=== PATIENT | female | born 2000 | race American Indian/Alaskan Native ===

== ENCOUNTER 2018-03-30 09:28 | Outpatient (CLI) | payer MEDICAID, OTHER ==
[2018-03-30] MEDS ORDERED: LACTATED RINGERS 500 ML IV ONE (09:42)
[2018-03-30 11:00] LABS: Hematocrit 32.8 % (30.3-42.9); Hemoglobin 11.3 gm/dl (10.1-14.3); Mean Corpuscular HGB Conc 35 % (30-34); Mean Corpuscular Hemoglobin 30 pg (28-32); Mean Corpuscular Volume 88 fl (79-97); Platelet Count 147 K/mm3 (140-440); Red Blood Count 3.73 M/mm3 (3.65-5.03); Red Cell Distribution Width 13.7 % (13.2-15.2)
[2018-03-30 11:04] VITALS: BP 125/80
[2018-03-30 11:15] LABS: Bacteria,Urine 1+ /HPF (Negative); Bilirubin,Urine NEG (Negative); Blood,Urine NEG (Negative); Color,Urine Yellow (Yellow); Protein,Urine <15 mg/dL mg/dL (Negative); Urobilinogen,Urine < 2.0 mg/dL (<2.0)
[2018-03-30 11:23] LABS: Amphetamine Screen,Urine PRESUMPTIVE NEGATIVE; Benzodiazepines Screen,Urine PRESUMPTIVE NEGATIVE; Cannabinoid Screen,Urine PRESUMPTIVE NEGATIVE; Cocaine Screen,Urine PRESUMPTIVE NEGATIVE; Methadone Screen,Urine PRESUMPTIVE NEGATIVE; Opiate Screen,Urine PRESUMPTIVE NEGATIVE
[2018-03-30 11:24] LABS: Alanine Aminotransferase 12 units/L (7-56)
--- NOTE | 2018-03-30 14:18 | Ultrasound Report ---
ULTRASOUND OB LIMITED History: Vaginal bleeding, placental scan Technique: Transabdominal ultrasound with Doppler interrogation. Gestation: Single Position: Breech Amniotic Fluid: Within normal limits Placenta: Fundal Placental Grade: 0 No evidence for abruption. Heart Rate: 158 BPM Cervical length: 3.2 cm (Normal > 3 cm)
== END 2018-03-30 11:52 | disposition home or self-care (01) ==
LOC: TRG 09:28
PROVIDERS: ATTEND Obstetrics & Gynecology
DX: O47.02 False labor before 37 completed weeks of gestation, second trimester (principal); Z3A.23 23 weeks gestation of pregnancy
CPT/HCPCS: 36415; 59025; 76815; 80307; 81001; 82565; 83615; 84450; 84460; 84550; 85027

== ENCOUNTER 2018-04-06 10:30 | Outpatient (CLI) | payer MEDICAID ==
[2018-04-06 10:52] VITALS: BP 130/83
[2018-04-06] MEDS ORDERED: LACTATED RINGERS 500 ML IV ONE (11:53)
== END 2018-04-06 12:17 | disposition home or self-care (01) ==
LOC: TRG 10:30
PROVIDERS: ATTEND Obstetrics & Gynecology
DX: O47.02 False labor before 37 completed weeks of gestation, second trimester (principal); Z3A.24 24 weeks gestation of pregnancy
CPT/HCPCS: 59025

== ENCOUNTER 2018-06-29 03:21 | Outpatient (CLI) | payer MEDICAID ==
[2018-06-29 03:52] VITALS: BP 142/85
[2018-06-29] MEDS ORDERED: LACTATED RINGERS 1,000 ML IV ONE (03:57)
== END 2018-06-29 05:22 | disposition home or self-care (01) ==
LOC: TRG 03:21
PROVIDERS: ATTEND Obstetrics & Gynecology
DX: O62.8 Other abnormalities of forces of labor (principal); O13.3 Gestational [pregnancy-induced] hypertension without significant proteinuria, third trimester; Z3A.36 36 weeks gestation of pregnancy
CPT/HCPCS: 59025

== ENCOUNTER 2018-07-04 20:15 | Inpatient (IN) | payer MEDICAID ==
[2018-07-04] MEDS ORDERED: STADOL IV PRN (22:11)
[2018-07-04] MEDS ORDERED: ZOFRAN IV PRN (22:11)
[2018-07-04] MEDS ORDERED: SUBLIMAZE IV PRN (22:11)
[2018-07-04] MEDS ORDERED: MINERAL OIL PO PRN (22:11)
[2018-07-04] MEDS ORDERED: XYLOCAINE 2% INFILTRATI ONE (22:11)
[2018-07-04 22:16] LABS: Hematocrit 33.6 % (30.3-42.9); Hemoglobin 11.5 gm/dl (10.1-14.3); Mean Corpuscular HGB Conc 34 % (30-34); Mean Corpuscular Volume 83 fl (79-97); Platelet Count 123 K/mm3 (140-440); Red Blood Count 4.02 M/mm3 (3.65-5.03); Red Cell Distribution Width 15.7 % (13.2-15.2)
[2018-07-04] MEDS ORDERED: PITOCin/NS 20 UNIT/1000ML DRIP 20 UNITS/1,000 ML BAG IV SCH (23:00)
[2018-07-04] MEDS ORDERED: PITOCin/NS 30 UNIT/500ML 30 UNITS/500 ML BAG IV SCH ×2 (23:00)
[2018-07-04] MEDS: LACTATED RINGERS 1,000 ML IV SCH (23:15)
--- NOTE | 2018-07-05 07:55 | History and Physical Report ---
History of Present Illness Date of examination: 07/05/18 Date of admission: 07/04/18 20:15 Chief complaint: IOL History of present illness: 18y/o @ 37+3 weeks presents for induction of labor secondary to IUGR and PIH. The patient initiated care @ 11 weeks ega with . Her course has been complicated by IUGR, concern for contractions, and PIH. Per recommendation of [facility] that the patient be scheduled for induction. Past History Past Medical History: no pertinent history Past Surgical History: no surgical history Social history: single - Obstetrical History Expected Date of Delivery: 07/23/18 Actual Gestation: 37 Week(s) 3 Day(s) : 1 Para: 0 Hx # Term Pregnancies: 0 Number of Pregnancies: 0 Spontaneous Abortions: 0 Induced : 0 Number of Living Children: 0 Medications and Allergies Allergies Allergy/AdvReac Type Severity Reaction Status Date / Time No Known Allergies Allergy Verified 05/18/18 16:28 Home Medications Medication Instructions Recorded Confirmed Last Taken Type RX: No Known Home Medications [No 06/29/18 06/29/18 Unknown History Reported Home Medications] Active Meds: Active Medications Butorphanol Tartrate (Stadol) 2 mg IV Q2H PRN PRN Reason: Pain , Severe (7-10) Ephedrine Sulfate (Ephedrine Sulfate) 10 mg IV Q2M PRN PRN Reason: Hypotension Fentanyl (Sublimaze) 100 mcg IV Q2H PRN PRN Reason: Labor Pain Oxytocin/Sodium Chloride (Pitocin/Ns 30 Unit/500ml) 30 units in 500 mls @ 2 mls/hr IV TITR JOHN; Protocol Last Titration: 07/05/18 02:00 Dose: 12 ml/hr, 12 mls/hr Documented by: Lactated Ringer's (Lactated Ringers) 1,000 mls @ 125 mls/hr IV DIRECT JOHN Last Admin: 07/04/18 23:15 Dose: 125 mls/hr Documented by: Oxytocin/Sodium Chloride (Pitocin/Ns 20 Unit/1000ml Drip) 20 units in 1,000 mls @ 125 mls/hr IV DIRECT JOHN Oxytocin/Sodium Chloride (Pitocin/Ns 30 Unit/500ml) 30 units in 500 mls @ 1 mls/hr IV TITR JOHN; Protocol Mineral Oil (Mineral Oil) 30 ml PO QHS PRN PRN Reason: Constipation Ondansetron HCl (Zofran) 4 mg IV Q8H PRN PRN Reason: Nausea And Vomiting Review of Systems All systems: negative Genitourinary: no leakage of fluid - Vital Signs Vital signs: Vital Signs Pulse BP 97 H 142/95 07/04/18 20:38 07/04/18 20:38 Temp Pulse Resp BP Pulse Ox 93 H 132/80 94 07/05/18 07:36 07/05/18 07:36 07/05/18 05:34 - Physical Exam Breasts: Positive: deferred Cardiovascular: Regular rate Lungs: Positive: Clear to auscultation Abdomen: Positive: normal appearance Results Result Diagrams: 07/04/18 21:57 Abnormal lab results 07/04/18 Range/Units 21:57 WBC 13.4 H (4.5-11.0) K/mm3 RDW 15.7 H (13.2-15.2) % Plt Count 123 L (140-440) K/mm3 All other labs normal. Assessment and Plan - Patient Problems (1) IUGR (intrauterine growth restriction) Current Visit: Yes Status: Acute Plan to address problem: admit for IOL
[2018-07-05] MEDS: LACTATED RINGERS 1,000 ML IV SCH (13:45)
--- NOTE | 2018-07-05 14:30 | Procedure Note ---
OB Delivery Note - Delivery Date of Delivery: 07/05/18 Surgeon: JOSE EDUARDO GILMORE Estimated blood loss: 500cc - Vaginal Delivery presentation: vertex Delivery position: OA Intrapartum events: mult.variable deceleratio Delivery augmentation: pitocin Delivery monitor: external FHT, external uterine Route of delivery: Delivery placenta: spontaneous Episiotomy: none Delivery laceration: other (Midline periurethral- hemostatic ) Anesthesia: none Delivery comments: Pt rapidly progressed from 4 cm to complete dilation and delivery of a viable female over intact perienum under no anesthesia attended by Ange RN while MD en route. Upon entry to room, on maternal chest for skin to skin with cord attached. Cord clamped and cut. Cord blood collected. Placenta delivered s pontaneously. Vagina and perineum explored. Midline periurethral laceration noted to be hemostatic. EBL 500 mL. - Infant A at 1 minute: 9 at 5 minutes: 9 Gender: Female (2580g (5lb 11 oz) @ 1410 pm)
[2018-07-05] MEDS ORDERED: LANSINOH TP PRN ×2 (18:02)
[2018-07-05] MEDS ORDERED: IBUPROFEN PO SCH (18:02)
[2018-07-05] MEDS ORDERED: DERMOPLAST TP PRN (18:02)
[2018-07-05] MEDS ORDERED: TUCKS PAD TP PRN (18:02)
[2018-07-05] MEDS ORDERED: SODIUM CHLORIDE FLUSH SYRINGE 10 ML IV NR (18:02)
[2018-07-05] MEDS ORDERED: PHENERGAN PR PRN (18:02)
[2018-07-05] MEDS ORDERED: MILK OF MAGNESIA PO PRN (18:02)
[2018-07-05] MEDS ORDERED: PHENERGAN PO PRN (18:02)
[2018-07-05] MEDS ORDERED: PITOCin/NS 20 UNIT/1000ML DRIP 20 UNITS/1,000 ML BAG IV SCH (18:02)
[2018-07-05] MEDS ORDERED: TYLENOL PO PRN (18:02)
[2018-07-05] MEDS ORDERED: ZOFRAN IV PRN (18:02)
[2018-07-05] MEDS ORDERED: DULCOLAX PR PRN (18:02)
[2018-07-05] MEDS ORDERED: BENADRYL PO PRN (18:02)
[2018-07-05] MEDS: NORCO 5/325 PO PRN (18:56)
[2018-07-05] MEDS: FEOSOL PO SCH (21:52)
[2018-07-06] MEDS: IBUPROFEN PO SCH ×4 (00:21→18:51)
[2018-07-06 03:00] LABS: Hematocrit 32.3 % (30.3-42.9); Hemoglobin 10.7 gm/dl (10.1-14.3)
[2018-07-06] MEDS ORDERED: M-M-R II VACCINE SUB-Q ONE (06:00)
[2018-07-06] MEDS ORDERED: BOOSTRIX IM ONE (06:00)
--- NOTE | 2018-07-06 07:59 | Progress Note ---
Assessment and Plan A: PPD#1 s/p at term, PIH P: Routine care. Anticipate discharge tomorrow. Subjective - Subjective Date of service: 07/06/18 Principal diagnosis: s/p at term; PIH Interval history: No overnight events. Patient reports: appetite normal, voiding normally, pain well controlled, ambulating normally [place]: doing well Objective - Vital Signs Latest vital signs: Vital Signs Temp Pulse Resp BP BP Pulse Ox 07/06/18 01:29 98.7 F 107 H 18 131/87 07/05/18 20:55 98.5 F 108 H 20 130/79 07/05/18 18:05 98.5 F 103 H 147/90 07/05/18 15:36 87 138/85 07/05/18 15:06 107 H 134/80 07/05/18 14:36 103 H 134/83 07/05/18 14:06 102 H 142/96 07/05/18 13:36 114 H 128/83 07/05/18 13:06 100 H 151/87 07/05/18 12:37 99 H 139/91 07/05/18 12:06 99 H 142/95 07/05/18 11:36 103 H 130/83 07/05/18 11:07 92 H 138/92 07/05/18 10:36 90 135/92 07/05/18 10:08 94 H 95 07/05/18 10:06 93 H 136/77 07/05/18 10:04 97.6 F 94 H 14 136/80 07/05/18 10:03 95 H 92 07/05/18 09:59 92 H 94 07/05/18 09:58 94 H 136/80 96 07/05/18 09:36 100 H 137/83 07/05/18 09:06 108 H 124/80 07/05/18 08:36 96 H 120/67 07/05/18 08:07 96 H 139/80 Intake and Output 07/05/18 07/06/18 07/06/18 22:59 06:59 14:59 Intake Total 180 360 Output Total 1100 800 Balance -920 -440 Intake: Intake, Free Water 180 360 Output: Urine 1100 800 Void 1100 800 Other: Total, Output Amount 600 800 # Voids Void 1 Estimated Blood Loss 500 - Exam Breasts: Present: deferred Cardiovascular: Present: Regular rate Lungs: Present: Clear to auscultation Abdomen: Present: soft Uterus: Present: fundal height at umbilicus Extremities: Present: normal
[2018-07-06] MEDS: FEOSOL PO SCH ×2 (10:15→21:36)
[2018-07-06] MEDS ORDERED: IBUPROFEN PO SCH (18:30)
[2018-07-07] MEDS: IBUPROFEN PO SCH ×3 (00:24→12:11)
[2018-07-07] MEDS: FEOSOL PO SCH (10:00)
[2018-07-07] MEDS: NORCO 5/325 PO PRN (10:00)
--- NOTE | 2018-07-07 11:46 | Progress Note ---
Assessment and Plan A: PPD#2 s/p at term, PIH P: Routine care. Discharge tomorrow. Subjective - Subjective Date of service: 07/07/18 Principal diagnosis: s/p at term; PIH Interval history: No overnight events. Pt anxious to go home. Patient reports: appetite normal, voiding normally, pain well controlled, ambulating normally : doing well, bottle feeding Objective - Vital Signs Latest vital signs: Vital Signs Temp Pulse Resp BP BP Pulse Ox 07/07/18 08:20 97.8 F 76 18 130/89 96 07/07/18 00:58 98.8 F 79 16 112/64 95 07/06/18 16:44 98.6 F 92 H 18 139/96 97 07/06/18 13:09 97.8 F 98 H 18 143/89 96 Intake and Output 07/06/18 07/07/18 07/07/18 22:59 06:59 14:59 Intake Total 1080 240 Balance 1080 240 Intake: Oral 360 240 Intake, Free Water 720 Other: Total, Intake Amount 360 240 # Voids Void 1 1 # Bowel Movements 1 - Exam Breasts: Present: deferred Cardiovascular: Present: Regular rate Lungs: Present: Clear to auscultation Uterus: Present: fundal height below umbilicus Extremities: Present: normal
--- NOTE | 2018-07-07 12:02 | Discharge Summary ---
Providers - Providers Date of Admission: 07/04/18 20:15 Date of discharge: 07/07/18 Attending physician: OSCAR REDDING 07/05/18 18:02 Consult to Testboard Operator [CONS] Routine Reason For Exam: assistance with , SNS Primary care physician: OSCAR REDDING Hospitalization Reason for admission: induction of labor Delivery: Procedure details: Please see delivery note. Episiotomy: none Laceration: other (bilateral periurethral ) Other procedures: none complications: none Discharge diagnosis: IUP at term delivered baby: female Hospital course: Pt was admitted for induction of labor secondary to IUGR and PIH. She subsequently delivered a viable female via . Her course was uncomplicated and she met discharge criteria on PPD#2. She will follow up in the office for a blood pressure check. Condition at discharge: Stable Disposition: DC-01 TO HOME OR SELFCARE - Discharge Diagnoses (1) Term of female Status: Acute (2) PIH ( induced hypertension) Status: Acute Qualifiers: Trimester: third trimester Qualified Code(s): O13.3 - Gestational [-induced] hypertension without significant proteinuria, third trimester (3) IUGR (intrauterine growth restriction) Status: Acute Plan - Discharge Medications Prescriptions: HYDROcodone/APAP 5-325 [[place] 5/325] 1 each PO Q6HR PRN #20 tablet PRN Reason: Pain Ibuprofen [Motrin] 800 mg PO Q8HR PRN #30 tablet PRN Reason: Pain, Moderate (4-6) - Provider Discharge Summary Activity: routine, no sex for 6 weeks, no heavy lifting 4 weeks, no strenuous exercise Diet: routine Instructions: routine Additional instructions: [] Smoking cessation referral if applicable(refer to patient education folder for contact #) [] Refer to [facility] Booklet Call your doctor immediately for: * Fever > 100.5 * Heavy vaginal bleeding ( >1 pad per hour) * Severe persistent headache * Shortness of breath * Reddened, hot, painful area to leg or breast * Drainage or odor from incision. * Keep incision clean and dry at all times and follow doctor's instructions regarding bathing/showering - Follow up plan Follow up: OPAL CHAPPELL MD [Staff Physician] - 7 Days
[2018-07-07 13:38] VITALS: BP 136/91
== END 2018-07-07 13:25 | disposition home or self-care (01) | DRG 774 ==
LOC: LD 20:15 → OB 07-05 17:52
PROVIDERS: ADMIT Obstetrics & Gynecology; ATTEND Obstetrics & Gynecology
PROC: 10E0XZZ Delivery of Products of Conception, External Approach (ICD-10-PCS; principal; 2018-07-05)
PROC: 0UQMXZZ Repair Vulva, External Approach (ICD-10-PCS; 2018-07-05)
PROC: 3E0234Z Introduction of Serum, Toxoid and Vaccine into Muscle, Percutaneous Approach (ICD-10-PCS; 2018-07-06)
DX: O13.4 Gestational [pregnancy-induced] hypertension without significant proteinuria, complicating childbirth (principal); O36.5930 Maternal care for other known or suspected poor fetal growth, third trimester, not applicable or unspecified; O76 Abnormality in fetal heart rate and rhythm complicating labor and delivery; O71.82 Other specified trauma to perineum and vulva; Z37.0 Single live birth; Z3A.37 37 weeks gestation of pregnancy; Z23 Encounter for immunization
CPT/HCPCS: 36415; 85014; 85018; 85027; 86592; 86850; 86900; 86901; 88307; 90471; 90715; G0378; J0595; J2590; J7120

== ENCOUNTER 2018-07-31 17:36 | Emergency (ER) | payer MEDICAID ==
[2018-07-31] MEDS ORDERED: NACL 0.9% 1000 ML 1,000 ML IV ONE ×2 (17:57→19:19)
[2018-07-31] MEDS ORDERED: ROCEPHIN/NS 1 GM/50 ML 1 GM/50 ML BAG IV ONE (17:58)
--- NOTE | 2018-07-31 18:16 | Emergency Department Report ---
HPI <JANAE TELLES - Last Filed: 07/31/18 22:00> - HPI HPI: 18-year-old [place]an female presents to the emergency department, sent in by urgent care, with complaint of fever, tachycardia and abdominal pain, nausea and vomiting. Patient says that the symptoms started 3 nights ago, Monday night, after she ate some Italian food. She says that the abdomen still hurts but it worsens after eating. It is the lower abdomen. She says that she had a MAXIMUM TEMPERATURE fever of 106 Fahrenheit yesterday but it went down to 98.8F after some Tylenol. Allegedly she had a fever of about 103F at urgent care but it has come down and she has not taken any Tylenol or NSAIDs today. The patient was found to have some tachycardia and hypertension at the urgent care and was given 10 mg of hydralazine in the office. Patient is 3 weeks post after a vaginal delivery by Dr. Stephanie Ahn, here at [facility]. She is . She denies any history of preeclampsia. <TYRONE WHYTE S - Last Filed: 08/03/18 20:02> - General Time Seen by Provider: 07/31/18 17:54 ED Past Medical Hx <JANAE TELLES - Last Filed: 07/31/18 22:00> - Past Medical History Previous Medical History?: Yes Hx Hypertension: Yes (gestational 01/2018) Hx CVA: No Hx Diabetes: No Hx Deep Vein Thrombosis: No Hx Renal Disease: No Hx Sickle Cell Disease: No Hx Seizures: No Hx Asthma: No Hx HIV: No - Surgical History Past Surgical History?: No - Social History Smoking Status: Never Smoker Substance Use Type: None <TYRONE WHYTE - Last Filed: 08/03/18 20:02> - Medications Home Medications: Home Medications Medication Instructions Recorded Confirmed Last Taken Type HYDROcodone/APAP 5-325 [[place] 1 each PO Q6HR PRN #20 tablet 07/07/18 Unknown Rx 5/325] Ibuprofen [Motrin] 800 mg PO Q8HR PRN #30 tablet 07/07/18 Unknown Rx Cephalexin [Keflex] 1,000 mg PO BID #28 capsule 07/31/18 Unknown Rx Ondansetron [Zofran Odt] 4 mg PO Q8HR PRN #16 tab.rapdis 07/31/18 Unknown Rx ED Review of Systems ROS: Stated complaint: HTN/TACHY CARDIA Other details as noted in HPI <JANAE TELLES - Last Filed: 07/31/18 22:00> ROS: Stated complaint: HTN/TACHY CARDIA Other details as noted in HPI Comment: All other systems reviewed and negative Constitutional: fever. denies: weakness Eyes: denies: eye pain, vision change ENT: denies: ear pain, throat pain Respiratory: denies: cough, shortness of breath Cardiovascular: denies: chest pain, edema Gastrointestinal: abdominal pain, nausea, vomiting Genitourinary: denies: dysuria, discharge Musculoskeletal: denies: back pain, arthralgia Skin: denies: rash, lesions Neurological: denies: headache, weakness <TYRONE WHYTE - Last Filed: 08/03/18 20:02> Physical Exam - Physical Exam Vital Signs: Vital Signs 07/31/18 07/31/18 07/31/18 17:51 17:52 18:00 Temperature 101.2 F H Pulse Rate 115 H 111 H Respiratory 17 23 Rate Blood Pressure 159/111 162/117 Blood Pressure [Left] O2 Sat by Pulse 99 99 99 Oximetry 07/31/18 07/31/18 07/31/18 18:15 18:32 18:45 Temperature Pulse Rate 106 H 114 H 104 H Respiratory 16 20 13 Rate Blood Pressure 153/116 159/111 158/109 Blood Pressure [Left] O2 Sat by Pulse 99 98 Oximetry 07/31/18 07/31/18 07/31/18 19:00 19:24 19:28 Temperature 99.5 F Pulse Rate 106 H Respiratory 18 Rate Blood Pressure 158/109 158/106 Blood Pressure 158/106 [Left] O2 Sat by Pulse 98 98 97 Oximetry 07/31/18 07/31/18 07/31/18 19:30 20:00 20:30 Temperature Pulse Rate Respiratory 18 Rate Blood Pressure 149/104 152/115 Blood Pressure [Left] O2 Sat by Pulse 99 98 Oximetry 07/31/18 21:00 Temperature Pulse Rate Respiratory Rate Blood Pressure 161/116 Blood Pressure [Left] O2 Sat by Pulse 97 Oximetry <JANAE TELLES - Last Filed: 07/31/18 22:00> - Physical Exam Vital Signs: Vital Signs 07/31/18 17:52 Temperature 101.2 F H Pulse Rate 115 H Blood Pressure 159/111 O2 Sat by Pulse 99 Oximetry <TYRONE WHYTE - Last Filed: 08/03/18 20:02> ED Course Vital Signs 07/31/18 07/31/18 07/31/18 17:51 17:52 18:00 Temperature 101.2 F H Pulse Rate 115 H 111 H Respiratory 17 23 Rate Blood Pressure 159/111 162/117 Blood Pressure [Left] O2 Sat by Pulse 99 99 99 Oximetry 07/31/18 07/31/18 07/31/18 18:15 18:32 18:45 Temperature Pulse Rate 106 H 114 H 104 H Respiratory 16 20 13 Rate Blood Pressure 153/116 159/111 158/109 Blood Pressure [Left] O2 Sat by Pulse 99 98 Oximetry 07/31/18 07/31/18 07/31/18 19:00 19:24 19:28 Temperature 99.5 F Pulse Rate 106 H Respiratory 18 Rate Blood Pressure 158/109 158/106 Blood Pressure 158/106 [Left] O2 Sat by Pulse 98 98 97 Oximetry 07/31/18 07/31/18 07/31/18 19:30 20:00 20:30 Temperature Pulse Rate Respiratory 18 Rate Blood Pressure 149/104 152/115 Blood Pressure [Left] O2 Sat by Pulse 99 98 Oximetry 07/31/18 21:00 Temperature Pulse Rate Respiratory Rate Blood Pressure 161/116 Blood Pressure [Left] O2 Sat by Pulse 97 Oximetry <JANAE TELLES - Last Filed: 07/31/18 22:00> Vital Signs 07/31/18 17:52 Temperature 101.2 F H Pulse Rate 115 H Blood Pressure 159/111 O2 Sat by Pulse 99 Oximetry <TYRONE WHYTE - Last Filed: 08/03/18 20:02> ED Medical Decision Making - Lab Data Result diagrams: 07/31/18 18:03 07/31/18 18:03 - Radiology Data Radiology results: report reviewed FINAL REPORT EXAM: CT ABDOMEN PELVIS W CON HISTORY: lower abd pain, fever, 3 weeks TECHNIQUE: Following IV administration of 100 cc of Omnipaque 300 axial helical imaging was performed through the abdomen and pelvis with sagittal and coronal reformatted images obtained. Delayed axial helical imaging was also performed through the abdomen and pelvis. Comparison: None FINDINGS: The lung bases are without infiltrate, pneumothorax or pleural fluid collection. The liver, spleen, pancreas, kidneys and adrenal glands are unremarkable in appearance. The gallbladder is mildly distended and unremarkable. The bowel is normal caliber. The appendix is normal caliber. There is no evidence of pneumoperitoneum or free fluid. There are mildly prominent lymph nodes in the right lower quadrant that are nonspecific in appearance but are most likely inflammatory in nature. These appear to measure 12 millimeters or less in size. The abdominal aorta is normal caliber. There is a fluid-filled structure in the midline anterior and superior to the urinary bladder that appears to be contiguous with the urinary bladder. Though the urinary bladder is opacified with IV contrast on the delayed images this collection does not opacify. There is a calcification in the dependent portion of the nonenhancing collection superior to the urinary bladder.. The uterus and adnexal are unremarkable in appearance. The bony structures are unremarkable. IMPRESSION: 1. Fluid-filled structure anterior and superior to the bladder that contains a calcification in the dependent portion. This may represent a urachal remnant/urachal diverticulum that contains a possible stone. Referral to urology is recommended for further evaluation. 2. Mildly prominent lymph nodes right lower quadrant that are nonspecific in appearance but are most likely inflammatory in nature and can be seen patients with mesenteric adenitis. - Medical Decision Making Results of CAT scan discussed. Patient provided a copy of her CAT scan report and urology follow-up. <JANAE TELLES - Last Filed: 07/31/18 22:00> - Lab Data Result diagrams: 07/31/18 18:03 07/31/18 18:03 - EKG Data -: EKG Interpreted by [facility] EKG shows normal: sinus rhythm, axis, intervals, QRS complexes, ST-T waves Rate: normal - EKG Data When compared to previous EKG there are: previous EKG unavailable Interpretation: normal EKG - Medical Decision Making Patient came in with what appeared to be a septic appearance with complaint of nausea, vomiting, fever and abdominal pain. She is a few weeks status post delivery. She was given some Tylenol and eventually Toradol for her fever and discomfort. Labs were mostly unremarkable except for a leukocytosis. There is no venous acidosis or lactic acidosis. Abdominal x-ray shows nonspecific nonobstructive bowel gas. The patient was given Zofran for nausea, IV resuscitation. CT scan of the abdomen and pelvis showed some nonspecific fluid- filled structure around the bladder, possible stone, and some lymph nodes that could be concerning for mesenteric adenitis. Patient's vital signs were stable throughout her ED course but improved with fever control and IV fluid resuscitation. The patient says she is feeling much better and has been eating/drinking in the emergency department. She appears safe for discharge home. She'll be discharged with antibiotics, nausea medication and instructions to follow up with primary care and [facility] if necessary. She was also given urology follow-up. She will return to the ER with any worsening of her symptoms or any acute distress. - Differential Diagnosis preeclampsia, sepsis, UTI, colitis <TYRONE WHYTE - Last Filed: 08/03/18 20:02> Critical care attestation.: If time is entered above; I have spent that time in minutes in the direct care of this critically ill patient, excluding procedure time. <JANAE TELLES - Last Filed: 07/31/18 22:00> Critical Care Time: No Critical care attestation.: If time is entered above; I have spent that time in minutes in the direct care of this critically ill patient, excluding procedure time. <TYRONE WHYTE S - Last Filed: 08/03/18 20:02> ED Disposition Is pt being admited?: No <JANAE TELLES - Last Filed: 07/31/18 22:00> Is pt being admited?: No Time of Disposition: 20:50 <TYRONE WHYTE S - Last Filed: 08/03/18 20:02> Clinical Impression: Mesenteric adenitis, Stone, bladder, diverticulum Abdominal pain Qualifiers: Abdominal location: lower abdomen, unspecified Qualified Code(s): R10.30 - Lower abdominal pain, unspecified Fever Qualifiers: Fever type: unspecified Qualified Code(s): R50.9 - Fever, unspecified Nausea and vomiting Qualifiers: Vomiting type: unspecified Vomiting Intractability: non-intractable Qualified Code(s): R11.2 - Nausea with vomiting, unspecified Disposition: -01 TO HOME OR SELFCARE Condition: Stable Instructions: Fever in Adults (ED), Acute Nausea and Vomiting (ED), Abdominal Pain (ED) Additional Instructions: Please follow up with a primary care physician. I also recommend that you follow up with your [facility] in the next few days. I am giving a referral for a local powerhouse engineer, Dr. Ahn, to follow up regarding her abdominal pain. Return to the emergency Department with any worsening of your symptoms or any acute distress. You can take Tylenol every 4 hours and ibuprofen every 6 hours, using weight- based dosing on the back of the bottle, as needed for fever or discomfort. Follow-up urology and take your CAT scan report to your doctors for follow-up. Prescriptions: Cephalexin [Keflex] 1,000 mg PO BID #28 capsule Ondansetron [Zofran Odt] 4 mg PO Q8HR PRN #16 tab.rapdis PRN Reason: Nausea Referrals: WILLOW AHN MD [Staff Physician] - 3-5 Days STEPHANIE AHN MD [Staff Physician] - 3-5 Days PRIYA COELHO MD [Staff Physician] - 3-5 Days (Urology)
[2018-07-31] MEDS ORDERED: TYLENOL PO ONE (18:17)
[2018-07-31 18:21] LABS: Basophils # (Auto) 0.1 K/mm3 (0.0-0.1); Basophils % (Auto) 0.3 % (0.0-1.8); Eosinophils # (Auto) 0.1 K/mm3 (0.0-0.4); Eosinophils % (Auto) 0.5 % (0.0-4.3); Hematocrit 40.9 % (30.3-42.9); Hemoglobin 13.4 gm/dl (10.1-14.3); Lymphocytes # (Auto) 1.4 K/mm3 (1.2-5.4); Lymphocytes % (Auto) 7.9 % (13.4-35.0); Mean Corpuscular HGB Conc 33 % (30-34); Mean Corpuscular Volume 82 fl (79-97); Monocytes # (Auto) 1.5 K/mm3 (0.0-0.8); Monocytes % (Auto) 8.1 % (0.0-7.3); Platelet Count 177 K/mm3 (140-440); Red Cell Distribution Width 16.2 % (13.2-15.2)
[2018-07-31 18:41] LABS: Alanine Aminotransferase 14 units/L (7-56); Albumin 4.6 g/dL (3.9-5); BUN/Creatinine Ratio 8; Blood Urea Nitrogen 8 mg/dL (7-17); Calcium 9.4 mg/dL (8.4-10.2); Hemolysis Index 2
[2018-07-31] MEDS ORDERED: TORADOL IV ONE (18:44)
[2018-07-31 19:49] LABS: Bilirubin,Urine NEG (Negative); Blood,Urine SM (Negative); Color,Urine Yellow (Yellow); Mucus,Urine FEW /HPF; Protein,Urine <15 mg/dL mg/dL (Negative); Urobilinogen,Urine < 2.0 mg/dL (<2.0)
--- NOTE | 2018-07-31 19:49 | XRay Report ---
FINAL REPORT EXAM: XR ABDOMEN 2V HISTORY: abd pain July 05, 2018 TECHNIQUE: Frontal views of the abdomen and pelvis Comparison: None FINDINGS: The bowel gas pattern is nonobstructive with air in mildly distended loops of small bowel and colon. There is no evidence of pneumoperitoneum nor organomegaly. The bony structures are notable for levocurvature of the lumbar spine. IMPRESSION: 1. No plain film evidence of an acute intra-abdominal process 2. Levocurvature lumbar spine.
--- NOTE | 2018-07-31 21:35 | Cat Scan Report ---
FINAL REPORT EXAM: CT ABDOMEN PELVIS W CON HISTORY: lower abd pain, fever, 3 weeks TECHNIQUE: Following IV administration of 100 cc of Omnipaque 300 axial helical imaging was performe d through the abdomen and pelvis with sagittal and coronal reformatted images obtained. Delayed axial helical imaging was also performed through the abdomen and pelvis. Comparison: None FINDINGS: The lung bases are without infiltrate, pneumothorax or pleural fluid collection. The liver, spleen, pancreas, kidneys and adrenal glands are unremarkable in appearance. The gallbladder is mildly distended and unremarkable. The bowel is normal caliber. The appendix is normal caliber. There is no evidence of pneumoperitoneum or free fluid. There are mildly prominent lymph nodes in the right lower quadrant that are nonspecific in appearance but are most likely inflammatory in nature. These appear to measure 12 millimeters or less in size. The abdominal aorta is normal caliber. There is a fluid-filled structure in the midline anterior and superior to the urinary bladder that ap pears to be contiguous with the urinary bladder. Though the urinary bladder is opacified with IV cont rast on the delayed images this collection does not opacify. There is a calcification in the dependen t portion of the nonenhancing collection superior to the urinary bladder.. The uterus and adnexal are unremarkable in appearance. The bony structures are unremarkable. IMPRESSION: 1. Fluid-filled structure anterior and superior to the bladder that contains a calcification in the d ependent portion. This may represent a urachal remnant/urachal diverticulum that contains a possible stone. Referral to urology is recommended for further evaluation. 2. Mildly prominent lymph nodes right lower quadrant that are nonspecific in appearance but are most likely inflammatory in nature and can be seen patients with mesenteric adenitis.
[2018-07-31 23:10] VITALS: BP 149/110
== END 2018-07-31 23:10 | disposition home or self-care (01) ==
LOC: ED 17:36
DX: I88.0 Nonspecific mesenteric lymphadenitis (principal); N21.0 Calculus in bladder; K57.90 Diverticulosis of intestine, part unspecified, without perforation or abscess without bleeding; I10 Essential (primary) hypertension
CPT/HCPCS: 36415; 74019; 74177; 80053; 81001; 82140; 82805; 85025; 85730; 87040; 93005; 93010; 96361; 96365; 96375; 99285; J0696; J1885; J7030; Q9967

== ENCOUNTER 2018-12-25 14:24 | Emergency (ER) | payer MEDICAID ==
--- NOTE | 2018-12-25 15:07 | Event Note ---
ED Screening Note ED Screening Note: GI DOCTOR SP COLONSCOPY THAT WAS NORMAL ON BC LMP LAST WEEK GI SENT HER HERE FOR PELVIC EXAM This initial assessment/diagnostic orders/clinical plan/treatment(s) is/are subject to change based on patients health status, clinical progression and re- assessment by fellow clinical providers in the ED. Further treatment and workup at subsequent clinical providers discretion. Patient/guardian urged not to elope from the ED as their condition may be serious if not clinically assessed and managed. Initial orders include:
[2018-12-25 16:01] LABS: Hemoglobin 13.6 gm/dl (10.1-14.3); Mean Corpuscular HGB Conc 33 % (30-34); Mean Corpuscular Volume 84 fl (79-97); Platelet Count 183 K/mm3 (140-440); Red Blood Count 4.88 M/mm3 (3.65-5.03); Red Cell Distribution Width 15.4 % (13.2-15.2)
[2018-12-25 16:25] LABS: BUN/Creatinine Ratio 13; Blood Urea Nitrogen 10 mg/dL (7-17); Calcium 9.5 mg/dL (8.4-10.2); Hemolysis Index 66
[2018-12-25 17:48] LABS: Bilirubin,Urine NEG (Negative); Blood,Urine NEG (Negative); Color,Urine Straw (Yellow); Protein,Urine <15 mg/dL mg/dL (Negative); Urobilinogen,Urine < 2.0 mg/dL (<2.0); WBC,Urine < 1.0 /HPF (0.0-6.0)
[2018-12-25 17:50] LABS: HCG Qualitative,Urine Negative (Negative)
[2018-12-25 18:12] VITALS: BP 142/91
--- NOTE | 2018-12-25 19:28 | Emergency Department Report ---
ED Abdominal Pain HPI - General Chief Complaint: Abdominal Pain Stated Complaint: ABDOMINAL PAIN Time Seen by Provider: 12/25/18 15:05 Source: patient Mode of arrival: Ambulatory Limitations: No Limitations - History of Present Illness Initial Comments: 18-year-old -[place] female comes in complaining of abdominal pain that's been going on since about July. Patient reports she's had a CT scan done as well as a colonoscopy that was done on 621 which she reports was within normal limits. Patient had back study done through [facility]. Patient's last Mr. Mckeon was 12/07/2018. Patient reports that the pain is lower abdomen and cramps. She denies any vaginal bleeding or vaginal discharge. Patient does admit to happen on appointment tomorrow with her INSURANCE SALES MANAGER Dr. Stephanie Ahn. Complaint: abdominal pain Onset/Timin -: month(s) Location: suprapubic Severity scale (0 -10): 0 Quality: cramping Consistency: constant Worsens With: medication (B process) Associated Symptoms: denies: nausea, vomiting, diarrhea, fever, chills, constipation - Related Data Previous Rx's Medication Instructions Recorded Last Taken Type HYDROcodone/APAP 5-325 [[place] 1 each PO Q6HR PRN #20 tablet 07/07/18 Unknown Rx 5/325] Ibuprofen [Motrin] 800 mg PO Q8HR PRN #30 tablet 07/07/18 Unknown Rx Cephalexin [Keflex] 1,000 mg PO BID #28 capsule 07/31/18 Unknown Rx Ondansetron [Zofran Odt] 4 mg PO Q8HR PRN #16 tab.rapdis 07/31/18 Unknown Rx Allergies Allergy/AdvReac Type Severity Reaction Status Date / Time No Known Allergies Allergy Verified 05/18/18 16:28 ED Review of Systems ROS: Stated complaint: ABDOMINAL PAIN Other details as noted in HPI Comment: All other systems reviewed and negative Gastrointestinal: abdominal pain ED Past Medical Hx - Past Medical History Previous Medical History?: Yes Hx Hypertension: Yes Hx CVA: No Hx Diabetes: No Hx Deep Vein Thrombosis: No Hx Renal Disease: No Hx Sickle Cell Disease: No Hx Seizures: No Hx Asthma: No Hx HIV: No - Surgical History Past Surgical History?: No - Social History Smoking Status: Never Smoker Substance Use Type: None - Medications Home Medications: Home Medications Medication Instructions Recorded Confirmed Last Taken Type HYDROcodone/APAP 5-325 [[place] 1 each PO Q6HR PRN #20 tablet 07/07/18 Unknown Rx 5/325] Ibuprofen [Motrin] 800 mg PO Q8HR PRN #30 tablet 07/07/18 Unknown Rx Cephalexin [Keflex] 1,000 mg PO BID #28 capsule 07/31/18 Unknown Rx Ondansetron [Zofran Odt] 4 mg PO Q8HR PRN #16 tab.rapdis 07/31/18 Unknown Rx ED Physical Exam - General Limitations: No Limitations General appearance: alert, in no apparent distress - Eye Eye exam: Present: normal appearance - ENT ENT exam: Present: mucous membranes moist - Respiratory Respiratory exam: Present: normal lung sounds bilaterally. Absent: respiratory distress - Cardiovascular Cardiovascular Exam: Present: regular rate, normal rhythm. Absent: systolic murmur, diastolic murmur, rubs, gallop - GI/Abdominal GI/Abdominal exam: Present: soft, tenderness (suprapubic). Absent: distended - Speculum exam: Present: cervical discharge Bi-manual exam: Present: cervical motion tendernes - Extremities Exam Extremities exam: Present: normal inspection - Back Exam Back exam: Present: normal inspection - Neurological Exam Neurological exam: Present: alert, oriented X3, normal gait - Psychiatric Psychiatric exam: Present: normal affect, normal mood - Skin Skin exam: Present: warm, dry, intact, normal color. Absent: rash ED Course Vital Signs 12/25/18 18:11 Temperature 98.6 F Pulse Rate 84 Respiratory 16 Rate Blood Pressure 142/91 [Left] O2 Sat by Pulse 100 Oximetry ED Medical Decision Making - Lab Data Result diagrams: 12/25/18 15:41 12/25/18 15:41 - Medical Decision Making 18-year-old female comes in her chronic abdominal pain. Patient has been seen by GI with normal colonoscopy. Patient reports she had a CT scan. Patient had a female exam done today by this provider which shows normal wet prep. Gonorrhea and chlamydia has been sent out. Labs are stable urine is negative. Negative test. Patient has an appointment set up for tomorrow with her INSURANCE SALES MANAGER. Discussed the patient she should follow up with them tomorrow. Patient to take [id number] pain medication. Critical care attestation.: If time is entered above; I have spent that time in minutes in the direct care of this critically ill patient, excluding procedure time. ED Disposition Clinical Impression: Chronic abdominal pain Disposition: DC- TO HOME OR SELFCARE Is pt being admited?: No Does the pt Need Aspirin: No Condition: Stable Instructions: Abdominal Pain (ED) Additional Instructions: Labs are all stable you can bring your picture ID to medical records to obtain your gonorrhea and chlamydia tests in 3-7 days. Please take ibuprofen as needed for pain management. Follow up with your primary care provider or [employer] or INSURANCE SALES MANAGER provider. Referrals: KJ SMITH MD [Primary Care Provider] - 3-5 Days
== END 2018-12-25 21:15 | disposition home or self-care (01) ==
LOC: ED 14:24
DX: G89.29 Other chronic pain (principal); R10.30 Lower abdominal pain, unspecified; I10 Essential (primary) hypertension; Z79.899 Other long term (current) drug therapy
CPT/HCPCS: 36415; 80048; 81001; 81025; 85027; 87210; 87591; 99284

== ENCOUNTER 2020-02-22 12:20 | Outpatient (CLI) | payer OTHER ==
[2020-02-22 12:56] VITALS: BP 118/72
[2020-02-22] MEDS ORDERED: LACTATED RINGERS 500 ML IV ONE (13:38)
[2020-02-22] MEDS ORDERED: LACTATED RINGERS 1,000 ML IV ONE (14:28)
[2020-02-22 15:16] LABS: Bacteria,Urine 1+ /HPF (Negative); Bilirubin,Urine NEG (Negative); Blood,Urine SM (Negative); Color,Urine Yellow (Yellow); Mucus,Urine FEW /HPF; Protein,Urine <15 mg/dL mg/dL (Negative); Urobilinogen,Urine < 2.0 mg/dL (<2.0)
--- NOTE | 2020-02-22 17:03 | Ultrasound Report ---
US OB limited INDICATION / CLINICAL INFORMATION: NILSON. COMPARISON: None available. FINDINGS: Transabdominal imaging was performed. Amniotic fluid index is 14.5 cm, within normal limits. Single intrauterine fetus is seen currently in breech position with heart rate of 153. IMPRESSION: 1. NILSON within normal limits. 2. lie is currently breech. Signer Name: Yehuda Lopez MD Signed: 02/22/2020 4:58 PM Workstation Name: [id number]
== END 2020-02-22 16:10 | disposition home or self-care (01) ==
LOC: TRG 12:20 → APU 12:20 → TRG 16:10
PROVIDERS: ATTEND Obstetrics & Gynecology
DX: O62.9 Abnormality of forces of labor, unspecified (principal); O32.1XX0 Maternal care for breech presentation, not applicable or unspecified; O13.2 Gestational [pregnancy-induced] hypertension without significant proteinuria, second trimester; Z3A.27 27 weeks gestation of pregnancy
CPT/HCPCS: 59025; 76815; 81001; 87086; 96360; J7120

== ENCOUNTER 2020-02-23 17:01 | Outpatient (CLI) | payer OTHER ==
[2020-02-23 17:41] VITALS: BP 121/77
[2020-02-23] MEDS ORDERED: LACTATED RINGERS 500 ML IV ONE (17:46)
[2020-02-23 19:30] LABS: Bilirubin,Urine NEG (Negative); Blood,Urine NEG (Negative); Color,Urine Yellow (Yellow); Protein,Urine <15 mg/dL mg/dL (Negative); Urobilinogen,Urine < 2.0 mg/dL (<2.0)
[2020-02-23] MEDS ORDERED: BETAMET ACET/BETAMET NA PH 6 MG/ML INJ 5 ML MDV IM SCH (21:00)
== END 2020-02-23 23:05 | disposition home or self-care (01) ==
LOC: APU 17:01 → TRG 17:01
PROVIDERS: ATTEND Obstetrics & Gynecology
DX: O26.892 Other specified pregnancy related conditions, second trimester (principal); R10.30 Lower abdominal pain, unspecified; O47.02 False labor before 37 completed weeks of gestation, second trimester; O10.912 Unspecified pre-existing hypertension complicating pregnancy, second trimester; Z3A.27 27 weeks gestation of pregnancy
CPT/HCPCS: 36415; 59025; 81001; 82731; 96372; J0702

== ENCOUNTER 2020-02-24 20:22 | Outpatient (CLI) | payer OTHER ==
[2020-02-24 20:46] VITALS: BP 124/74
[2020-02-24] MEDS ORDERED: BETAMET ACET/BETAMET NA PH 6 MG/ML INJ 5 ML MDV IM ONE ×2 (20:53)
== END 2020-02-24 21:27 | disposition home or self-care (01) ==
LOC: TRG 20:22 → APU 20:24 → TRG 21:27
PROVIDERS: ATTEND Obstetrics & Gynecology
DX: O47.02 False labor before 37 completed weeks of gestation, second trimester (principal); Z3A.27 27 weeks gestation of pregnancy
CPT/HCPCS: 59025; 96372; J0702

== ENCOUNTER 2020-02-25 13:36 | Outpatient (CLI) | payer OTHER ==
[2020-02-25 14:35] VITALS: BP 123/75
[2020-02-25] MEDS ORDERED: LACTATED RINGERS 1,000 ML IV SCH (15:00)
[2020-02-25] MEDS ORDERED: D5W/LACTATED RINGERS 1,000 ML IV ONE (15:09)
[2020-02-25] MEDS ORDERED: D5W/0.45% NACL 1,000 ML IV SCH (16:00)
== END 2020-02-25 16:40 | disposition home or self-care (01) ==
LOC: TRG 13:36 → APU 13:39 → TRG 16:36
PROVIDERS: ATTEND Obstetrics & Gynecology
DX: O26.892 Other specified pregnancy related conditions, second trimester (principal); R10.30 Lower abdominal pain, unspecified; M79.606 Pain in leg, unspecified; O47.02 False labor before 37 completed weeks of gestation, second trimester; O23.42 Unspecified infection of urinary tract in pregnancy, second trimester; Z3A.27 27 weeks gestation of pregnancy
CPT/HCPCS: 59025; J7121; 96360

== ENCOUNTER 2020-03-09 14:10 | Outpatient (CLI) | payer OTHER ==
[2020-03-09 14:34] VITALS: BP 124/75
[2020-03-09] MEDS ORDERED: LACTATED RINGERS 500 ML IV ONE (15:25)
[2020-03-09 15:45] LABS: Bilirubin,Urine NEG (Negative); Blood,Urine NEG (Negative); Color,Urine Yellow (Yellow); Mucus,Urine FEW /HPF; Protein,Urine <15 mg/dL mg/dL (Negative); Urobilinogen,Urine < 2.0 mg/dL (<2.0)
[2020-03-09] MEDS ORDERED: TERBUTALINE 1 MG/1 ML INJ SUB-Q ONE (16:03)
[2020-03-09] MEDS ORDERED: TERBUTALINE 1 MG/1 ML INJ ONE (16:06)
== END 2020-03-09 16:32 | disposition home or self-care (01) ==
LOC: TRG 14:10 → APU 14:11 → TRG 16:32
PROVIDERS: ATTEND Obstetrics & Gynecology
DX: O62.9 Abnormality of forces of labor, unspecified (principal); O13.3 Gestational [pregnancy-induced] hypertension without significant proteinuria, third trimester; Z3A.29 29 weeks gestation of pregnancy
CPT/HCPCS: 59025; 81001; 96372; J3105

== ENCOUNTER 2020-04-03 17:54 | Outpatient (CLI) | payer OTHER ==
[2020-04-03] MEDS ORDERED: LACTATED RINGERS 1,000 ML IV ONE (19:02)
[2020-04-03 19:43] LABS: Bilirubin,Urine NEG (Negative); Blood,Urine NEG (Negative); Color,Urine Yellow (Yellow); Mucus,Urine FEW /HPF; Protein,Urine <15 mg/dL mg/dL (Negative)
[2020-04-03] MEDS ORDERED: ceFAZolin/NS 1 GM/50 ML 1 GM/50 ML BAG IV ONE (20:23)
[2020-04-03] MEDS ORDERED: TERBUTALINE 1 MG/1 ML INJ SUB-Q ONE (20:24)
[2020-04-03] MEDS ORDERED: NIFEdipine*For Tocolysis only* 10 MG CAPSULE PO ONE (21:02)
[2020-04-03 23:27] VITALS: BP 122/67
== END 2020-04-04 00:15 | disposition home or self-care (01) ==
LOC: TRG 17:54 → APU 18:15 → TRG 04-04 00:15
PROVIDERS: ATTEND Obstetrics & Gynecology
DX: O26.893 Other specified pregnancy related conditions, third trimester (principal); R10.2 Pelvic and perineal pain; Z3A.33 33 weeks gestation of pregnancy
CPT/HCPCS: 59025; 81001; 96361; 96365; J0690; J7120; 96360

== ENCOUNTER 2020-04-08 08:06 | Inpatient (IN) | payer OTHER ==
[2020-04-08] MEDS ORDERED: LACTATED RINGERS 500 ML IV ONE (09:04)
[2020-04-08 09:22] LABS: Bacteria,Urine 2+ /HPF (Negative); Bilirubin,Urine NEG (Negative); Blood,Urine NEG (Negative); Color,Urine Yellow (Yellow); Protein,Urine <15 mg/dL mg/dL (Negative); Urobilinogen,Urine < 2.0 mg/dL (<2.0)
[2020-04-08] MEDS ORDERED: TERBUTALINE 1 MG/1 ML INJ SUB-Q PRN (09:35)
[2020-04-08] MEDS ORDERED: OXYTOCIN 10 UNIT/1 ML INJ IM PRN (09:35)
[2020-04-08] MEDS ORDERED: METHYLERGONOVINE MALEATE 0.2 MG/ML VIAL IM PRN (09:35)
[2020-04-08] MEDS ORDERED: AZITHROMYCIN 600 MG TAB PO ONE (09:41)
[2020-04-08] MEDS ORDERED: MAGNESIUM SULFATE 4 GM/100 ML BAG IV ONE (09:42)
[2020-04-08] MEDS ORDERED: MAGNESIUM SULFATE 40GM/1000ML 40 GM/1,000 ML BAG IV SCH (10:00)
[2020-04-08] MEDS ORDERED: OXYTOCIN DRIP 30 UNITS/500 ML BAG IV SCH (10:00)
[2020-04-08] MEDS ORDERED: fentaNYL 100 MCG/2 ML INJ IV PRN (10:00)
[2020-04-08] MEDS ORDERED: ONDANSETRON 4 MG/2 ML INJ IV PRN (10:00)
[2020-04-08] MEDS ORDERED: NALOXONE 0.4 MG/1 ML INJ IV PRN (10:00)
[2020-04-08] MEDS ORDERED: PROMETHAZINE 25 MG TAB PO PRN (10:00)
[2020-04-08] MEDS ORDERED: BUTORPHANOL 2 MG/1 ML INJ IV PRN ×2 (10:00)
[2020-04-08] MEDS ORDERED: LIDOCAINE (2%) 20 MG/1 ML VIAL 20 ML MDV INFILTRATI NR (10:00)
[2020-04-08] MEDS ORDERED: ePHEDrine SULFATE 50 MG/1 ML INJ IV PRN (10:00)
[2020-04-08] MEDS: BETAMET ACET/BETAMET NA PH 6 MG/ML INJ 5 ML MDV IM SCH (10:46)
[2020-04-08] MEDS: LACTATED RINGERS 1,000 ML IV SCH (10:47)
[2020-04-08] MEDS: AMPICILLIN/NS 2 GM/100 ML 2 GM/100 ML BAG IV SCH ×2 (10:47→20:18)
[2020-04-08 11:25] LABS: Hematocrit 32.2 % (30.3-42.9); Hemoglobin 10.8 gm/dl (10.1-14.3); Mean Corpuscular HGB Conc 33 % (30-34); Mean Corpuscular Volume 84 fl (79-97); Platelet Count 122 K/mm3 (140-440); Red Blood Count 3.83 M/mm3 (3.65-5.03); Red Cell Distribution Width 15.9 % (13.2-15.2)
[2020-04-08] MEDS ORDERED: AZITHROMYCIN 1 GM ORAL PWDR PACKET PO NR (12:00)
--- NOTE | 2020-04-08 12:57 | History and Physical Report ---
History of Present Illness Date of examination: 04/08/20 Date of admission: 04/08/20 10:10 Chief complaint: Pelvic pressure, water broke in triage History of present illness: Pt is a 19 yo at 33w5d EGA who presents with pelvic pressure and abdominal cramping since this morning. In triage, she experienced spontaneous rupture of membranes. She reports positive movement, leaking fluid, and mild contractions. She denies vaginal bleeding. She has a history of delivery at 36 weeks EGA, complicated by IUGR and PIH. She has received care with [facility]'s sr. manager since 10 weeks EGA. 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 GBS status is unknown. Past History Past Medical History: hypertension, kidney stones Past Surgical History: no surgical history [employer]INTENANCE History: chlamydia (remote from ), herpes (no lesion or prodrome) Social history: no significant social history - Obstetrical History Expected Date of Delivery: 05/22/20 Actual Gestation: 33 Week(s) 5 Day(s) : 2 Para: 1 Hx # Term Pregnancies: 0 Number of Pregnancies: 1 Number of Living Children: 1 Medications and Allergies Allergies Allergy/AdvReac Type Severity Reaction Status Date / Time No Known Allergies Allergy Verified 05/18/18 16:28 Home Medications Medication Instructions Recorded Confirmed Last Taken Type Vit-Fe Fumar-FA [ 1 tab PO QDAY 04/03/20 04/08/20 04/08/20 08:00 History Vitamin] Active Meds: Active Medications Azithromycin (Zithromax) 2 gm PO ONCE NR Stop: 04/08/20 13:00 Betamethasone Acet/Betameth SodPhos (Celestone Soluspan) 12 mg IM Q24HR JOHN Stop: 04/09/20 10:01 Last Admin: 04/08/20 10:46 Dose: 12 mg Documented by: Butorphanol Tartrate (Stadol) 1 mg IV Q2H PRN PRN Reason: Pain, Moderate(4-6) LABOR PAIN Butorphanol Tartrate (Stadol) 2 mg IV Q2H PRN PRN Reason: Pain , Severe (7-10) Ephedrine Sulfate (Ephedrine Sulfate) 10 mg IV Q2M PRN PRN Reason: Hypotension Fentanyl (Sublimaze) 100 mcg IV Q2H PRN PRN Reason: Pain,Severe (7-10) LABOR PAIN Ampicillin Sodium (Ampicillin/Ns 2 Gm/100 Ml) 2 gm in 100 mls @ 100 mls/hr IV Q6H JOHN; Protocol Last Admin: 04/08/20 10:47 Dose: 100 mls/hr Documented by: Lactated Ringer's (Lactated Ringers) 1,000 mls @ 125 mls/hr IV DIRECT JOHN Last Admin: 04/08/20 10:47 Dose: 125 mls/hr Documented by: Magnesium Sulfate (Magnesium Sulfate 40gm/1000ml) 40 gm in 1,000 mls @ 50 mls/hr IV DIRECT JOHN Oxytocin/Sodium Chloride (Pitocin/Ns 30 Unit/500ml) 30 units in 500 mls @ 40 mls/hr IV TITR JOHN; Protocol Lidocaine (Xylocaine 2%) 20 ml INFILTRATI ONCE NR Stop: 04/08/20 18:00 Methylergonovine Maleate (Methergine) 0.2 mg IM ONCE PRN PRN Reason: Uterine Bleeding Stop: 04/08/20 23:00 Mineral Oil (Mineral Oil) 30 ml PO QHS PRN PRN Reason: Constipation Naloxone HCl (Naloxone) 0.1 mg IV Q2MIN PRN PRN Reason: Res Rate </= 8 or 02 SAT < 92% Ondansetron HCl (Zofran) 4 mg IV Q8H PRN PRN Reason: Nausea And Vomiting Oxytocin (Pitocin) 10 unit IM ONCE PRN PRN Reason: Uterine Bleeding Stop: 04/08/20 23:00 Promethazine HCl (Phenergan) 25 mg PO Q6H PRN PRN Reason: Nausea And Vomiting Terbutaline Sulfate (Brethine) 0.25 mg SUB-Q ONCE PRN PRN Reason: Hyperstimulation/Hypertonicity Stop: 04/08/20 23:00 Review of Systems Genitourinary: leakage of fluid, contractions, no vaginal bleeding, no genital sores - Vital Signs Vital signs: Vital Signs Temp Pulse Resp BP Pulse Ox 98.2 F 97 H 20 122/68 98 04/08/20 08:35 04/08/20 08:35 04/08/20 08:35 04/08/20 08:35 04/08/20 08:35 Temp Pulse Resp BP Pulse Ox 98.2 F 88 20 130/74 99 04/08/20 08:35 04/08/20 12:43 04/08/20 08:35 04/08/20 11:44 04/08/20 12:43 - Physical Exam Lungs: Positive: Normal air movement Abdomen: Positive: soft Uterus: Positive: enlarged (gravid) - Obstetrical FHR: category 1 FHR comments: Deferred SVE due to ROM Uterine Contraction Pattern: Absent Results Result Diagrams: 04/08/20 10:55 Abnormal lab results 04/08/20 04/08/20 Range/Units 09:09 10:55 WBC 11.3 H (4.5-11.0) K/mm3 RDW 15.9 H (13.2-15.2) % Plt Count 122 L (140-440) K/mm3 Urine WBC (Auto) 18.0 H (0.0-6.0) /HPF All other labs normal. 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
--- NOTE | 2020-04-08 15:24 | Ultrasound Report ---
ULTRASOUND OBSTETRIC LIMITED INDICATION / CLINICAL INFORMATION: presentation. Clinical Gestational Age (GA): 33.5 weeks.days COMPARISON: 02/22/2020 FINDINGS: HEART RATE (beats per minute): 138 PRESENTATION: Cephalic. ADDITIONAL FINDINGS: None. IMPRESSION: 1. Cephalic presentation. Signer Name: Lazarus Finnegan MD Signed: 04/08/2020 3:19 PM Workstation Name: [id number]
[2020-04-08 15:37] LABS: Alanine Aminotransferase 9 units/L (7-56); Albumin 3.6 g/dL (3.9-5); Blood Urea Nitrogen 5 mg/dL (7-17); Calcium 8.8 mg/dL (8.4-10.2); Hemolysis Index 0
[2020-04-08 15:41] LABS: BUN/Creatinine Ratio 10
[2020-04-08 15:59] LABS: Uric Acid 5.5 mg/dL (3.5-7.6)
--- NOTE | 2020-04-08 21:31 | Consultation ---
Consult Note - Parent Education I met with parent(s) and discussed the following:: Need for NICU admission, Poss ible need for intubation and surfactant or other resp support, Temperature regulation, Head ultrasounds to evaluate IVH, Possible need for IV fluids/TPN and IV antibiotics, Possible need for umbilical lines, Importance of providing breast milk & encouraged pumping aft delivery, Slow feeding advancement and monitoring of tolerance. NG/OG feeds, Need to monitor for jaundice, Data for survival & survival without significant co-morbidities Parent(s) demonstrated understanding of all the information:: Yes Assessment and Plan - Assessment Gestation:: 33.5 Baby's gender: Male Baby's name: Ilan Additional Comment: Ms. Alvares is a 19 yo who presented with abdominal pain and had premature SROM while in triage earlier today. She has a history of some chronic hypertension-not requiring meds at this time for control, previous delivery at 36 weeks, UTI in 02/2020 that was treated with IV rocephin, Sickle cell trait, and + HSV ll without lesion or prodrome. Ms. Alvares received betamethasone on 02/23/20 and is now receiving a second course with 2nd dose due on 04/09. She is also receving mag sulfate at present, as well as Ampicillin. She also tested positive for sarah virus, without symptoms on her admission here. - Plan Plan: Agree with Mag, Ampicillin, and betamethasone. NICU team to attend delivery. Please call NICU with questions Also discussed with mother the visitation guidelines because she did test positive for sarah virus on admission. She voiced understanding and all of her questions were answered.
[2020-04-08] MEDS ORDERED: MINERAL OIL 30 ML ORAL LIQD PO PRN (22:00)
[2020-04-09] MEDS: AMPICILLIN/NS 2 GM/100 ML 2 GM/100 ML BAG IV SCH ×4 (02:09→17:13)
[2020-04-09] MEDS: LACTATED RINGERS 1,000 ML IV SCH (11:10)
[2020-04-09] MEDS: valACYclovir 500 MG TAB PO SCH (11:11)
[2020-04-09] MEDS: BETAMET ACET/BETAMET NA PH 6 MG/ML INJ 5 ML MDV IM SCH (11:53)
[2020-04-09] MEDS ORDERED: ZOLPIDEM 5 MG TAB PO PRN (13:55)
[2020-04-09] MEDS ORDERED: AZITHROMYCIN 250 MG TAB PO SCH (16:00)
--- NOTE | 2020-04-09 18:48 | Progress Note ---
Assessment and Plan - Patient Problems (1) premature rupture of membranes (PPROM) with unknown onset of labor Current Visit: Yes Status: Acute Plan to address problem: continue expectant management deliver for evidence of chorioamnionitis (2) COVID-19 affecting , antepartum Current Visit: Yes Status: Acute Plan to address problem: currently not demonstrating any respiratory compromise Subjective - Subjective Date of service: 04/09/20 Interval history: 19y/o @ 34+0 weeks with PPROM. Patient is receiving steroid and magnesium therapy along with antibiotics. She complains of occasional pelvic pressure. Denies any vaginal bleeding. Objective - Vital Signs Vital Signs: Vital Signs - 12hr 04/09/20 04/09/20 04/09/20 06:48 06:53 06:58 Pulse Rate 82 77 81 Blood Pressure O2 Sat by Pulse 96 96 96 Oximetry 04/09/20 04/09/20 04/09/20 07:03 07:08 07:13 Pulse Rate 85 79 83 Blood Pressure O2 Sat by Pulse 96 97 97 Oximetry 04/09/20 04/09/20 04/09/20 07:18 07:23 07:28 Pulse Rate 81 80 78 Blood Pressure O2 Sat by Pulse 96 96 98 Oximetry 04/09/20 04/09/20 04/09/20 07:33 07:38 07:43 Pulse Rate 80 83 80 Blood Pressure O2 Sat by Pulse 96 97 97 Oximetry 04/09/20 04/09/20 04/09/20 07:48 07:49 07:53 Pulse Rate 87 81 88 Blood Pressure 118/74 O2 Sat by Pulse 96 97 Oximetry 04/09/20 04/09/20 04/09/20 07:58 08:02 08:03 Pulse Rate 85 86 85 Blood Pressure O2 Sat by Pulse 97 94 96 Oximetry 04/09/20 04/09/20 04/09/20 08:08 08:13 08:18 Pulse Rate 108 H 86 89 Blood Pressure O2 Sat by Pulse 97 96 97 Oximetry 04/09/20 04/09/20 04/09/20 08:23 08:28 08:33 Pulse Rate 79 79 79 Blood Pressure O2 Sat by Pulse 97 97 97 Oximetry 04/09/20 04/09/20 04/09/20 08:38 08:43 08:48 Pulse Rate 81 83 82 Blood Pressure O2 Sat by Pulse 98 98 97 Oximetry 04/09/20 04/09/20 04/09/20 08:53 08:58 09:03 Pulse Rate 86 95 H 80 Blood Pressure O2 Sat by Pulse 97 96 99 Oximetry 04/09/20 04/09/20 04/09/20 09:08 09:13 09:18 Pulse Rate 84 85 88 Blood Pressure O2 Sat by Pulse 98 98 96 Oximetry 04/09/20 04/09/20 04/09/20 09:23 09:28 09:33 Pulse Rate 78 84 87 Blood Pressure O2 Sat by Pulse 97 98 97 Oximetry 04/09/20 04/09/20 04/09/20 09:38 09:43 09:48 Pulse Rate 85 87 94 H Blood Pressure O2 Sat by Pulse 97 97 98 Oximetry 04/09/20 04/09/20 04/09/20 09:51 09:53 09:58 Pulse Rate 98 H 83 89 Blood Pressure 120/85 O2 Sat by Pulse 99 96 Oximetry 04/09/20 04/09/20 04/09/20 10:03 10:08 10:13 Pulse Rate 91 H 88 89 Blood Pressure O2 Sat by Pulse 97 97 97 Oximetry 04/09/20 04/09/20 04/09/20 10:18 10:23 10:28 Pulse Rate 91 H 84 85 Blood Pressure O2 Sat by Pulse 97 97 98 Oximetry 04/09/20 04/09/20 04/09/20 10:33 10:38 10:43 Pulse Rate 80 92 H 91 H Blood Pressure O2 Sat by Pulse 98 97 96 Oximetry 04/09/20 04/09/20 04/09/20 10:48 10:53 10:58 Pulse Rate 91 H 85 85 Blood Pressure O2 Sat by Pulse 98 98 98 Oximetry 04/09/20 04/09/20 04/09/20 11:03 11:08 11:13 Pulse Rate 85 80 81 Blood Pressure O2 Sat by Pulse 98 97 97 Oximetry 04/09/20 04/09/20 04/09/20 11:18 11:23 11:28 Pulse Rate 79 80 78 Blood Pressure O2 Sat by Pulse 98 96 96 Oximetry 04/09/20 04/09/20 04/09/20 11:33 11:38 11:43 Pulse Rate 80 83 78 Blood Pressure O2 Sat by Pulse 96 96 96 Oximetry 1004/09/20 04/09/20 11:48 11:49 11:53 Pulse Rate 79 83 87 Blood Pressure 131/58 O2 Sat by Pulse 96 96 Oximetry 04/09/20 04/09/20 04/09/20 11:58 12:03 12:08 Pulse Rate 81 80 79 Blood Pressure O2 Sat by Pulse 97 96 98 Oximetry 04/09/20 04/09/20 04/09/20 12:13 12:18 12:23 Pulse Rate 78 75 79 Blood Pressure O2 Sat by Pulse 97 97 97 Oximetry 04/09/20 04/09/20 04/09/20 12:28 12:33 12:38 Pulse Rate 93 H 85 83 Blood Pressure O2 Sat by Pulse 98 98 96 Oximetry 04/09/20 04/09/20 04/09/20 12:43 12:48 12:53 Pulse Rate 80 81 81 Blood Pressure O2 Sat by Pulse 98 98 97 Oximetry 04/09/20 04/09/20 04/09/20 12:58 13:03 13:08 Pulse Rate 84 82 81 Blood Pressure O2 Sat by Pulse 97 97 96 Oximetry 04/09/20 04/09/20 04/09/20 13:13 13:18 13:23 Pulse Rate 81 81 84 Blood Pressure O2 Sat by Pulse 96 96 95 Oximetry 04/09/20 04/09/20 04/09/20 13:25 13:28 13:33 Pulse Rate 83 80 89 Blood Pressure O2 Sat by Pulse 94 95 95 Oximetry 04/09/20 04/09/20 04/09/20 13:38 13:43 13:48 Pulse Rate 87 96 H 80 Blood Pressure O2 Sat by Pulse 97 97 98 Oximetry 04/09/20 04/09/20 04/09/20 13:49 13:53 13:58 Pulse Rate 81 85 84 Blood Pressure 133/82 O2 Sat by Pulse 97 98 Oximetry 04/09/20 04/09/20 04/09/20 14:03 14:08 14:13 Pulse Rate 80 79 82 Blood Pressure O2 Sat by Pulse 97 97 99 Oximetry 04/09/20 04/09/20 04/09/20 14:18 14:23 14:28 Pulse Rate 82 82 85 Blood Pressure O2 Sat by Pulse 98 98 98 Oximetry 04/09/20 04/09/20 04/09/20 14:33 14:38 14:43 Pulse Rate 84 89 101 H Blood Pressure O2 Sat by Pulse 98 99 98 Oximetry 04/09/20 04/09/20 04/09/20 14:48 14:53 14:58 Pulse Rate 96 H 89 88 Blood Pressure O2 Sat by Pulse 99 98 99 Oximetry 04/09/20 04/09/20 04/09/20 15:03 15:08 15:13 Pulse Rate 91 H 97 H 100 H Blood Pressure O2 Sat by Pulse 97 98 98 Oximetry 04/09/20 04/09/20 04/09/20 15:16 15:18 15:23 Pulse Rate 96 H 98 H 90 Blood Pressure O2 Sat by Pulse 94 97 98 Oximetry 04/09/20 04/09/20 04/09/20 15:28 15:33 15:38 Pulse Rate 94 H 94 H 100 H Blood Pressure O2 Sat by Pulse 98 98 98 Oximetry 04/09/20 04/09/20 04/09/20 15:43 15:48 15:50 Pulse Rate 102 H 120 H 125 H Blood Pressure 124/64 O2 Sat by Pulse 99 96 Oximetry 04/09/20 04/09/20 04/09/20 15:53 15:58 16:03 Pulse Rate 105 H 105 H 110 H Blood Pressure O2 Sat by Pulse 99 99 97 Oximetry 04/09/20 04/09/20 04/09/20 16:08 16:13 16:18 Pulse Rate 109 H 105 H 105 H Blood Pressure O2 Sat by Pulse 96 97 97 Oximetry 04/09/20 04/09/20 04/09/20 16:23 16:28 16:33 Pulse Rate 101 H 102 H 98 H Blood Pressure O2 Sat by Pulse 96 96 97 Oximetry 04/09/20 04/09/20 04/09/20 16:38 16:43 16:48 Pulse Rate 90 93 H 89 Blood Pressure O2 Sat by Pulse 96 96 96 Oximetry 04/09/20 04/09/20 04/09/20 16:53 16:58 17:03 Pulse Rate 90 94 H 97 H Blood Pressure O2 Sat by Pulse 96 96 97 Oximetry 04/09/20 04/09/20 04/09/20 17:08 17:13 17:18 Pulse Rate 97 H 97 H 89 Blood Pressure O2 Sat by Pulse 99 97 97 Oximetry 04/09/20 04/09/20 04/09/20 17:23 17:28 17:33 Pulse Rate 88 87 103 H Blood Pressure O2 Sat by Pulse 98 98 97 Oximetry 04/09/20 04/09/20 04/09/20 17:34 17:38 17:43 Pulse Rate 98 H 98 H 94 H Blood Pressure O2 Sat by Pulse 92 100 98 Oximetry 04/09/20 04/09/20 04/09/20 17:48 17:53 17:58 Pulse Rate 97 H 96 H 98 H Blood Pressure O2 Sat by Pulse 96 97 96 Oximetry 04/09/20 04/09/20 04/09/20 18:03 18:08 18:13 Pulse Rate 95 H 99 H 102 H Blood Pressure O2 Sat by Pulse 96 97 98 Oximetry 04/09/20 04/09/20 04/09/20 18:18 18:23 18:28 Pulse Rate 98 H 96 H 92 H Blood Pressure O2 Sat by Pulse 97 97 98 Oximetry 04/09/20 04/09/20 04/09/20 18:33 18:38 18:43 Pulse Rate 92 H 96 H 91 H Blood Pressure O2 Sat by Pulse 97 96 96 Oximetry - Labs Labs: Abnormal Labs 04/08/20 04/08/20 04/08/20 09:09 10:00 10:55 WBC 11.3 H RDW 15.9 H Plt Count 122 L Carbon Dioxide BUN Creatinine Magnesium Alkaline Phosphatase Albumin Urine WBC (Auto) 18.0 H Coronavirus (PCR) Positive A 04/08/20 04/08/20 04/08/20 14:39 14:57 18:50 WBC RDW Plt Count Carbon Dioxide 20 L BUN 5 L Creatinine 0.5 L Magnesium 4.40 H 5.50 H Alkaline Phosphatase 144 H Albumin 3.6 L Urine WBC (Auto) Coronavirus (PCR) 04/09/20 01:06 WBC RDW Plt Count Carbon Dioxide BUN Creatinine Magnesium 6.40 H Alkaline Phosphatase Albumin Urine WBC (Auto) Coronavirus (PCR) Laboratory Results - last 24 hr 04/08/20 04/09/20 18:50 01:06 Magnesium 5.50 H 6.40 H
[2020-04-10] MEDS: AMPICILLIN/NS 2 GM/100 ML 2 GM/100 ML BAG IV SCH ×2 (01:14→08:30)
--- NOTE | 2020-04-10 08:25 | Progress Note ---
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 Denies vaginal bleeding. Patient reports: contractions (irregular ), no new complaints, no loss of fluid, no vaginal bleeding Objective - Vital Signs Vital Signs: Vital Signs - 12hr 04/09/20 04/09/20 04/09/20 20:28 20:33 20:38 Temperature Pulse Rate 85 81 78 Respiratory Rate Blood Pressure Blood Pressure [Left] O2 Sat by Pulse 97 96 96 Oximetry 04/09/20 04/09/20 04/09/20 20:43 20:48 20:53 Temperature Pulse Rate 76 73 78 Respiratory Rate Blood Pressure Blood Pressure [Left] O2 Sat by Pulse 96 95 96 Oximetry 04/09/20 04/09/20 04/09/20 20:58 21:03 21:08 Temperature Pulse Rate 78 78 81 Respiratory Rate Blood Pressure Blood Pressure [Left] O2 Sat by Pulse 96 95 96 Oximetry 04/09/20 04/09/20 04/09/20 21:13 21:18 21:19 Temperature Pulse Rate 80 76 77 Respiratory Rate Blood Pressure Blood Pressure [Left] O2 Sat by Pulse 97 96 94 Oximetry 04/09/20 04/09/20 04/09/20 21:23 21:28 21:33 Temperature Pulse Rate 77 80 88 Respiratory Rate Blood Pressure Blood Pressure [Left] O2 Sat by Pulse 97 96 97 Oximetry 04/09/20 04/09/20 04/09/20 21:38 21:43 21:48 Temperature Pulse Rate 79 77 90 Respiratory Rate Blood Pressure Blood Pressure [Left] O2 Sat by Pulse 98 98 97 Oximetry 04/09/20 04/09/20 04/09/20 21:53 21:58 22:00 Temperature 98.2 F Pulse Rate 84 80 Respiratory Rate Blood Pressure Blood Pressure [Left] O2 Sat by Pulse 95 97 Oximetry 04/09/20 04/09/20 04/09/20 22:03 22:08 22:13 Temperature Pulse Rate 83 77 80 Respiratory Rate Blood Pressure Blood Pressure [Left] O2 Sat by Pulse 97 97 95 Oximetry 04/09/20 04/09/20 04/09/20 22:18 22:23 22:28 Temperature Pulse Rate 81 82 89 Respiratory Rate Blood Pressure Blood Pressure [Left] O2 Sat by Pulse 95 96 95 Oximetry 04/09/20 04/09/20 04/09/20 22:33 22:35 22:38 Temperature Pulse Rate 84 92 H 83 Respiratory Rate Blood Pressure Blood Pressure [Left] O2 Sat by Pulse 95 94 96 Oximetry 04/09/20 04/09/20 04/09/20 22:43 22:48 22:53 Temperature Pulse Rate 79 87 90 Respiratory Rate Blood Pressure Blood Pressure [Left] O2 Sat by Pulse 98 98 98 Oximetry 04/09/20 04/09/20 04/09/20 22:58 23:03 23:08 Temperature Pulse Rate 87 92 H 86 Respiratory Rate Blood Pressure Blood Pressure [Left] O2 Sat by Pulse 99 98 99 Oximetry 04/09/20 04/09/20 04/09/20 23:13 23:23 23:25 Temperature Pulse Rate 87 84 83 Respiratory Rate Blood Pressure 114/68 Blood Pressure [Left] O2 Sat by Pulse 99 97 94 Oximetry 04/09/20 04/09/20 04/09/20 23:28 23:33 23:38 Temperature Pulse Rate 83 82 81 Respiratory Rate Blood Pressure Blood Pressure [Left] O2 Sat by Pulse 95 95 96 Oximetry 04/09/20 04/09/20 04/09/20 23:43 23:47 23:48 Temperature Pulse Rate 85 76 78 Respiratory Rate Blood Pressure Blood Pressure [Left] O2 Sat by Pulse 96 94 96 Oximetry 04/09/20 04/09/20 04/09/20 23:49 23:53 23:58 Temperature Pulse Rate 73 81 76 Respiratory Rate Blood Pressure 116/66 Blood Pressure [Left] O2 Sat by Pulse 95 95 Oximetry 04/09/20 04/10/20 04/10/20 23:59 00:03 00:05 Temperature Pulse Rate 80 77 81 Respiratory Rate Blood Pressure Blood Pressure [Left] O2 Sat by Pulse 94 95 94 Oximetry 04/10/20 04/10/20 04/10/20 00:08 00:10 00:13 Temperature Pulse Rate 83 82 74 Respiratory Rate Blood Pressure Blood Pressure [Left] O2 Sat by Pulse 94 94 95 Oximetry 04/10/20 04/10/20 04/10/20 00:15 00:18 00:21 Temperature Pulse Rate 76 82 83 Respiratory Rate Blood Pressure Blood Pressure [Left] O2 Sat by Pulse 94 94 94 Oximetry 04/10/20 04/10/20 04/10/20 00:23 00:26 00:28 Temperature Pulse Rate 79 79 81 Respiratory Rate Blood Pressure Blood Pressure [Left] O2 Sat by Pulse 95 93 94 Oximetry 04/10/20 04/10/20 04/10/20 00:32 00:33 00:38 Temperature Pulse Rate 81 83 85 Respiratory Rate Blood Pressure Blood Pressure [Left] O2 Sat by Pulse 94 94 93 Oximetry 04/10/20 04/10/20 04/10/20 00:43 00:48 00:53 Temperature Pulse Rate 76 83 71 Respiratory Rate Blood Pressure Blood Pressure [Left] O2 Sat by Pulse 95 96 95 Oximetry 04/10/20 04/10/20 04/10/20 00:58 01:00 01:03 Temperature 98 F Pulse Rate 76 75 Respiratory Rate Blood Pressure Blood Pressure [Left] O2 Sat by Pulse 96 97 Oximetry 04/10/20 04/10/20 04/10/20 01:08 01:13 01:18 Temperature Pulse Rate 78 82 88 Respiratory Rate Blood Pressure Blood Pressure [Left] O2 Sat by Pulse 96 97 94 Oximetry 04/10/20 04/10/20 04/10/20 01:23 01:28 01:33 Temperature Pulse Rate 83 86 85 Respiratory Rate Blood Pressure Blood Pressure [Left] O2 Sat by Pulse 96 96 97 Oximetry 04/10/20 04/10/20 04/10/20 01:38 01:43 01:48 Temperature Pulse Rate 84 96 H 83 Respiratory Rate Blood Pressure Blood Pressure [Left] O2 Sat by Pulse 98 98 99 Oximetry 04/10/20 04/10/20 04/10/20 01:49 01:53 01:58 Temperature Pulse Rate 82 87 85 Respiratory Rate Blood Pressure 118/63 Blood Pressure [Left] O2 Sat by Pulse 99 99 Oximetry 04/10/20 04/10/20 04/10/20 02:03 02:08 02:13 Temperature Pulse Rate 92 H 91 H 83 Respiratory Rate Blood Pressure Blood Pressure [Left] O2 Sat by Pulse 98 97 98 Oximetry 04/10/20 04/10/20 04/10/20 02:18 02:23 02:28 Temperature Pulse Rate 89 88 90 Respiratory Rate Blood Pressure Blood Pressure [Left] O2 Sat by Pulse 98 99 97 Oximetry 04/10/20 04/10/20 04/10/20 02:33 02:38 02:43 Temperature Pulse Rate 89 89 82 Respiratory Rate Blood Pressure Blood Pressure [Left] O2 Sat by Pulse 97 98 99 Oximetry 04/10/20 04/10/20 04/10/20 02:48 02:53 02:58 Temperature Pulse Rate 82 78 83 Respiratory Rate Blood Pressure Blood Pressure [Left] O2 Sat by Pulse 99 98 97 Oximetry 04/10/20 04/10/20 04/10/20 03:00 03:03 03:04 Temperature 98 F Pulse Rate 90 95 H Respiratory Rate Blood Pressure Blood Pressure [Left] O2 Sat by Pulse 97 94 Oximetry 04/10/20 04/10/20 04/10/20 03:08 03:10 03:13 Temperature Pulse Rate 80 93 H 74 Respiratory Rate Blood Pressure Blood Pressure [Left] O2 Sat by Pulse 93 94 95 Oximetry 04/10/20 04/10/20 04/10/20 03:15 03:18 03:21 Temperature Pulse Rate 75 74 75 Respiratory Rate Blood Pressure Blood Pressure [Left] O2 Sat by Pulse 93 93 94 Oximetry 04/10/20 04/10/20 04/10/20 03:23 03:26 03:28 Temperature Pulse Rate 82 77 82 Respiratory Rate Blood Pressure Blood Pressure [Left] O2 Sat by Pulse 93 93 94 Oximetry 04/10/20 04/10/20 04/10/20 03:32 03:33 03:38 Temperature Pulse Rate 79 83 80 Respiratory Rate Blood Pressure Blood Pressure [Left] O2 Sat by Pulse 94 94 95 Oximetry 04/10/20 04/10/20 04/10/20 03:43 03:48 03:49 Temperature Pulse Rate 74 83 89 Respiratory Rate Blood Pressure Blood Pressure [Left] O2 Sat by Pulse 94 95 94 Oximetry 04/10/20 04/10/20 04/10/20 03:53 03:54 03:58 Temperature Pulse Rate 79 80 79 Respiratory Rate Blood Pressure Blood Pressure [Left] O2 Sat by Pulse 95 94 95 Oximetry 04/10/20 04/10/20 04/10/20 04:00 04:03 04:07 Temperature Pulse Rate 78 83 81 Respiratory Rate Blood Pressure Blood Pressure [Left] O2 Sat by Pulse 94 95 94 Oximetry 04/10/20 04/10/20 04/10/20 04:08 04:13 04:15 Temperature 98.1 F Pulse Rate 78 82 Respiratory Rate Blood Pressure Blood Pressure [Left] O2 Sat by Pulse 96 96 Oximetry 04/10/20 04/10/20 04/10/20 04:18 04:23 04:24 Temperature Pulse Rate 82 86 77 Respiratory Rate Blood Pressure Blood Pressure [Left] O2 Sat by Pulse 95 98 93 Oximetry 04/10/20 04/10/20 04/10/20 04:28 04:33 04:38 Temperature Pulse Rate 83 80 87 Respiratory Rate Blood Pressure Blood Pressure [Left] O2 Sat by Pulse 95 95 96 Oximetry 04/10/20 04/10/20 04/10/20 04:43 04:48 04:53 Temperature Pulse Rate 84 83 70 Respiratory Rate Blood Pressure Blood Pressure [Left] O2 Sat by Pulse 97 96 96 Oximetry 04/10/20 04/10/20 04/10/20 04:58 05:03 05:08 Temperature Pulse Rate 85 83 84 Respiratory Rate Blood Pressure Blood Pressure [Left] O2 Sat by Pulse 97 96 96 Oximetry 04/10/20 04/10/20 04/10/20 05:13 05:18 05:23 Temperature Pulse Rate 82 84 79 Respiratory Rate Blood Pressure Blood Pressure [Left] O2 Sat by Pulse 97 96 96 Oximetry 04/10/20 04/10/20 04/10/20 05:28 05:33 05:38 Temperature Pulse Rate 79 83 82 Respiratory Rate Blood Pressure Blood Pressure [Left] O2 Sat by Pulse 96 96 95 Oximetry 04/10/20 04/10/20 04/10/20 05:39 05:43 05:46 Temperature Pulse Rate 80 81 84 Respiratory Rate Blood Pressure Blood Pressure [Left] O2 Sat by Pulse 93 97 94 Oximetry 04/10/20 04/10/20 04/10/20 05:48 05:53 05:58 Temperature Pulse Rate 80 84 80 Respiratory Rate Blood Pressure Blood Pressure [Left] O2 Sat by Pulse 95 94 96 Oximetry 04/10/20 04/10/20 04/10/20 06:03 06:08 06:13 Temperature Pulse Rate 89 95 H 102 H Respiratory Rate Blood Pressure Blood Pressure [Left] O2 Sat by Pulse 96 99 97 Oximetry 04/10/20 04/10/20 04/10/20 06:18 06:23 06:28 Temperature Pulse Rate 79 84 78 Respiratory Rate Blood Pressure Blood Pressure [Left] O2 Sat by Pulse 99 98 96 Oximetry 04/10/20 04/10/20 04/10/20 06:30 06:33 06:38 Temperature Pulse Rate 78 79 91 H Respiratory Rate Blood Pressure Blood Pressure [Left] O2 Sat by Pulse 94 96 97 Oximetry 04/10/20 04/10/20 04/10/20 06:43 06:48 06:52 Temperature Pulse Rate 85 84 77 Respiratory Rate Blood Pressure Blood Pressure [Left] O2 Sat by Pulse 95 96 94 Oximetry 04/10/20 04/10/20 04/10/20 06:53 06:58 07:03 Temperature Pulse Rate 80 76 78 Respiratory Rate Blood Pressure Blood Pressure [Left] O2 Sat by Pulse 97 94 95 Oximetry 04/10/20 04/10/20 04/10/20 07:06 07:08 07:13 Temperature Pulse Rate 84 89 90 Respiratory Rate Blood Pressure Blood Pressure [Left] O2 Sat by Pulse 94 97 97 Oximetry 04/10/20 04/10/20 04/10/20 07:18 07:22 07:23 Temperature 98.1 F Pulse Rate 81 87 87 Respiratory 16 Rate Blood Pressure 121/74 Blood Pressure 121/74 [Left] O2 Sat by Pulse 96 97 96 Oximetry 04/10/20 04/10/20 04/10/20 07:28 07:33 07:38 Temperature Pulse Rate 74 85 81 Respiratory Rate Blood Pressure Blood Pressure [Left] O2 Sat by Pulse 97 96 96 Oximetry 04/10/20 04/10/20 04/10/20 07:43 07:48 07:49 Temperature Pulse Rate 83 85 82 Respiratory Rate Blood Pressure 122/65 Blood Pressure [Left] O2 Sat by Pulse 97 97 Oximetry 04/10/20 04/10/20 04/10/20 07:53 07:58 08:03 Temperature Pulse Rate 84 87 88 Respiratory Rate Blood Pressure Blood Pressure [Left] O2 Sat by Pulse 97 98 97 Oximetry 04/10/20 04/10/20 04/10/20 08:08 08:13 08:18 Temperature Pulse Rate 92 H 92 H 100 H Respiratory Rate Blood Pressure Blood Pressure [Left] O2 Sat by Pulse 97 96 98 Oximetry - Exam Breasts: deferred Abdomen: Present: soft (gravid ) Uterus: Present: normal (gravid ) FHR: auscultation normal Uterine Contraction Monitor Mode: External Cervical Dilatation: 3 Cervical Effacement Percentage: 60 station: -2 Uterine Contraction Pattern: Irregular Uterine Tone Measurement Phase: Resting Uterine Contraction Intensity: Mild Extremities: normal - Labs Labs: Abnormal Labs 04/08/20 04/08/20 04/08/20 09:09 10:00 10:55 WBC 11.3 H RDW 15.9 H Plt Count 122 L Carbon Dioxide BUN Creatinine Magnesium Alkaline Phosphatase Albumin Urine WBC (Auto) 18.0 H Coronavirus (PCR) Positive A 04/08/20 04/08/20 04/08/20 14:39 14:57 18:50 WBC RDW Plt Count Carbon Dioxide 20 L BUN 5 L Creatinine 0.5 L Magnesium 4.40 H 5.50 H Alkaline Phosphatase 144 H Albumin 3.6 L Urine WBC (Auto) Coronavirus (PCR) 04/09/20 01:06 WBC RDW Plt Count Carbon Dioxide BUN Creatinine Magnesium 6.40 H Alkaline Phosphatase Albumin Urine WBC (Auto) Coronavirus (PCR)
[2020-04-10] MEDS ORDERED: ePHEDrine SULFATE 50 MG/1 ML INJ IV PRN (08:28)
[2020-04-10] MEDS ORDERED: LIDOCAINE (2%) 20 MG/1 ML VIAL 20 ML MDV INFILTRATI ONE (08:28)
[2020-04-10] MEDS ORDERED: TERBUTALINE 1 MG/1 ML INJ SUB-Q PRN (08:28)
[2020-04-10] MEDS ORDERED: AMPICILLIN/NS 2 GM/100 ML 2 GM/100 ML BAG IV ONE (08:28)
[2020-04-10] MEDS ORDERED: miSOPROStol 200 MCG TAB PR PRN (08:28)
--- NOTE | 2020-04-10 08:33 | Event Note ---
Date: 04/10/20 On-call MD contacted by charge nurse secondary to expected NICU admissions this morning and NICU staffing with request to delay induction of labor until this evening. Category I tracing. Continue to monitor maternal and status.
[2020-04-10 09:02] LABS: Basophils % (Auto) 0.1 % (0.0-1.8); Hematocrit 29.8 % (30.3-42.9); Hemoglobin 10.5 gm/dl (10.1-14.3); Lymphocytes # (Auto) 1.2 K/mm3 (1.2-5.4); Lymphocytes % (Auto) 6.7 % (13.4-35.0); Mean Corpuscular HGB Conc 35 % (30-34); Mean Corpuscular Volume 83 fl (79-97); Monocytes % (Auto) 5.5 % (0.0-7.3); Platelet Count 132 K/mm3 (140-440); Red Blood Count 3.61 M/mm3 (3.65-5.03); Red Cell Distribution Width 15.8 % (13.2-15.2)
[2020-04-10] MEDS: valACYclovir 500 MG TAB PO SCH (09:31)
[2020-04-10] MEDS: AMPICILLIN/NS 1 GM/50 ML 1 GM/50 ML BAG IV SCH ×2 (14:00→22:20)
[2020-04-10] MEDS ORDERED: METHYLERGONOVINE MALEATE 0.2 MG/ML VIAL IM ONE (14:21)
[2020-04-10] MEDS: OXYTOCIN DRIP 30 UNITS/500 ML BAG IV SCH (16:00)
[2020-04-11] MEDS: LACTATED RINGERS 1,000 ML IV SCH ×2 (01:00→20:50)
[2020-04-11] MEDS: AMPICILLIN/NS 1 GM/50 ML 1 GM/50 ML BAG IV SCH ×5 (03:23→22:15)
[2020-04-11] MEDS: valACYclovir 500 MG TAB PO SCH (08:45)
[2020-04-12] MEDS: OXYTOCIN DRIP 30 UNITS/500 ML BAG IV SCH (00:50)
[2020-04-12] MEDS ORDERED: LANOLIN/ZINC/DIMETHICONE (LANSINOH) 7 GM TP PRN (03:12)
[2020-04-12] MEDS ORDERED: WITCH HAZEL/ GLYCERIN PAD TP PRN (03:12)
[2020-04-12] MEDS ORDERED: HYDROcodone/ACETAMINOPHEN 5-325 MG TAB PO PRN (03:12)
[2020-04-12] MEDS ORDERED: MAGNESIUM HYDROXIDE (MOM) ORAL LIQD UDC PO PRN (03:12)
[2020-04-12] MEDS ORDERED: diphenhydrAMINE 25 MG CAP PO PRN (03:12)
[2020-04-12] MEDS ORDERED: PROMETHAZINE 25 MG RECT SUPP PR PRN (03:12)
[2020-04-12] MEDS ORDERED: PROMETHAZINE 25 MG TAB PO PRN (03:12)
[2020-04-12] MEDS ORDERED: ONDANSETRON 4 MG/2 ML INJ IV PRN (03:12)
--- NOTE | 2020-04-12 03:15 | Procedure Note ---
OB Delivery Note - Delivery Date of Delivery: 04/12/20 Surgeon: REMI TERAN Estimated blood loss: 200cc - Vaginal Delivery presentation: vertex Delivery position: OA Intrapartum events: labor-<37 weeks, PROM->1hr before delivery Delivery induction: oxytocin Delivery monitor: external FHT, external uterine Route of delivery: Delivery placenta: spontaneous Delivery cord: 3 umbilical vessels Episiotomy: none Delivery laceration: none Anesthesia: none Delivery comments: Viable male born at 0137 over intact perineum precipitously with no epidural. Infant had spontaneous cry. Placenta delivered spontaneously and intact. No lacerations. Excellent hemostasis. - A at 1 minute: 8 at 5 minutes: 9 Infant Gender: Male (5 pounds 14ounces)
[2020-04-12] MEDS: IBUPROFEN 600 MG TAB PO SCH ×4 (04:15→21:00)
[2020-04-12] MEDS: DOCUSATE SODIUM 100 MG CAP PO SCH ×2 (10:41→21:00)
[2020-04-12] MEDS: PRENATAL VIT27-FE FUMARATE-FOLIC ACID VIT TAB PO SCH (10:41)
[2020-04-12 15:59] LABS: Hemoglobin 11.2 gm/dl (10.1-14.3)
[2020-04-13] MEDS: IBUPROFEN 600 MG TAB PO SCH ×3 (03:00→12:30)
--- NOTE | 2020-04-13 08:01 | Progress Note ---
Assessment and Plan A: PPD#1 s/p at 34 wks secondary to PPROM Coronavirus Positive on 04/08/20 P: Routine care Discharge later today Quarantine for total of 14 days Subjective - Subjective Date of service: 04/13/20 Principal diagnosis: PPROM, 34 wks Interval history: Pt without complaints. Patient reports: appetite normal, voiding normally [place]: in NICU Objective - Vital Signs Latest vital signs: Vital Signs Temp Pulse Resp BP BP Pulse Ox 04/13/20 05:00 98.4 F 78 18 126/78 04/13/20 00:00 98.2 F 75 18 129/79 04/12/20 21:00 98.5 F 75 18 121/74 98 04/12/20 16:08 97.6 F 19 04/12/20 15:54 125/84 04/12/20 15:40 98 F 87 20 128/73 04/12/20 12:27 97.4 F L 93 H 19 120/71 93 04/12/20 12:00 98.4 F 98 H 20 135/72 04/12/20 08:58 98.4 F 72 19 110/76 96 Intake and Output 04/12/20 04/13/20 04/13/20 22:59 06:59 14:59 Intake Total 440 Balance 440 Intake: Oral 440 Other: Total, Intake Amount 200 # Voids Void 1 - Exam Breasts: Present: deferred Abdomen: Present: soft Uterus: Present: fundal height below umbilicus Extremities: Present: normal
--- NOTE | 2020-04-13 08:08 | Discharge Summary ---
Providers - Providers Date of Admission: 04/08/20 10:10 Date of discharge: 04/13/20 Attending physician: OSCAR REDDING Primary care physician: OSCAR REDDING Hospitalization Reason for admission: rupture of membranes Delivery: Procedure details: Please see delivery note. Episiotomy: none Laceration: none Other procedures: none complications: none Discharge diagnosis: delivery [place] baby: male Hospital course: Pt was admitted with PPROM at 33 wks. She received betamethasone x 2 and was was induced once she reached 34 wks. She went on to have a spontaneous vaginal delivery which she tolerated well. She was diagnosed with coronavirus 19 on 04/08/20 and has been asymptomatic throughout her hospital course. Her course has been uneventful. She has been instructed to quarantine for 10 -14 days and to delay any office appts until at least 2 weeks from her positive test and when she can produce a negative test. Condition at discharge: Stable Disposition: DC-01 TO HOME OR SELFCARE - Discharge Diagnoses (1) delivery Status: Acute (2) COVID-19 affecting , antepartum Status: Acute (3) premature rupture of membranes (PPROM) with unknown onset of labor Status: Acute Plan - Discharge Medications Prescriptions: Ibuprofen [Motrin] 800 mg PO Q8HR PRN #30 tablet PRN Reason: Pain, Moderate (4-6) HYDROcodone/APAP 5-325 [[place] 5/325] 1 each PO Q6HR PRN #10 tablet PRN Reason: Pain - Provider Discharge Summary Activity: routine, no sex for 6 weeks, no heavy lifting 4 weeks, no strenuous exercise Diet: routine Instructions: routine Additional instructions: [] Smoking cessation referral if applicable(refer to patient education folder for contact #) [] Refer to [facility] Booklet Call your doctor immediately for: * Fever > 100.5 * Heavy vaginal bleeding ( >1 pad per hour) * Severe persistent headache * Shortness of breath * Reddened, hot, painful area to leg or breast * Drainage or odor from incision. * Keep incision clean and dry at all times and follow doctor's instructions regarding bathing/showering Please quarantine for 10-14 days prior to returning to the office for any appointments. Please delay your son's circumcision until he is 3-4 wks old. - Follow up plan Follow up: GEORGINA GALLEGO CNM [Advanced Practice Nurse] - 05/11/20 (Please call to schedule a postpatum appt. Please schedule your son's circumcision when he is 3-4 wks old. )
[2020-04-13] MEDS: DOCUSATE SODIUM 100 MG CAP PO SCH (12:30)
[2020-04-13] MEDS: PRENATAL VIT27-FE FUMARATE-FOLIC ACID VIT TAB PO SCH (12:30)
[2020-04-13 15:51] VITALS: BP 122/78
== END 2020-04-13 13:40 | disposition home or self-care (01) | DRG 774 ==
LOC: TRG 08:06 → APU 08:07 → LD 10:00 → TRG 10:07 → LD 10:10 → OB 04-12 03:10
PROVIDERS: ADMIT Obstetrics & Gynecology; ATTEND Obstetrics & Gynecology
PROC: 3E033VJ Introduction of Other Hormone into Peripheral Vein, Percutaneous Approach (ICD-10-PCS; 2020-04-10)
PROC: 10E0XZZ Delivery of Products of Conception, External Approach (ICD-10-PCS; principal; 2020-04-12)
DX: O10.919 Unspecified pre-existing hypertension complicating pregnancy, unspecified trimester (principal); B00.9 Herpesviral infection, unspecified; O98.519 Other viral diseases complicating pregnancy, unspecified trimester; U07.1 COVID-19; O60.10X0 Preterm labor with preterm delivery, unspecified trimester, not applicable or unspecified; O98.52 Other viral diseases complicating childbirth; O99.02 Anemia complicating childbirth; D57.3 Sickle-cell trait; Z3A.33 33 weeks gestation of pregnancy; Z37.0 Single live birth; Z87.442 Personal history of urinary calculi
CPT/HCPCS: 36415; 76815; 80053; 81001; 83735; 84550; 85014; 85018; 85025; 85027; 86592; 86850; 86900; 86901; 87086; 88307; G0378; J0290; J0595; J0702; J2210; J2405; J2590; J3010; J3475; J7120; U0003-CS